=== PATIENT | male | born 1940 | race Caucasian/White ===

== ENCOUNTER 2019-03-07 16:51 | Inpatient (IN) ==
[2019-03-07] MEDS ORDERED: DEPO-MEDROL IM ONE (17:06)
[2019-03-07 17:55] LABS: BASO# 0.01 X1000 (0.0-0.2); BASO% 0.1 % (0.0-0.8); EOS# 0.01 X1000 (0.0-0.7); EOS% 0.1 % (0.0-10.0); HEMATOCRIT 43.4 % (42.0-52.0); IMM GRAN# 0.02 X1000 (0.0-0.04); IMM GRAN% 0.2 % (0.0-0.5); LYMPH# 0.35 X1000 (1.2-3.4); LYMPH% 3.8 % (20.5-51.1); MCH 32.5 PG (27-31); MCHC 32.3 g/dL (33-37); MCV 100.7 FL (81-99); MONO# 0.61 X1000 (0.11-0.59); MONO% 6.7 % (1.7-9.3); MPV 9.6 FL (7.4-10.4); NEUT# 8.16 X1000 (1.4-6.5); NEUT% 89.1 % (42.2-75.2); PLT 238 X1000 (130-400); RBC 4.31 XMIL (4.7-6.1); RDW 14.8 % (11.5-14.5); WBC 9.16 X1000 (4.8-10.8)
[2019-03-07 17:58] LABS: INR 1.2; PROTIME 15.3 Seconds (11.0-16.0)
[2019-03-07 17:59] LABS: URINE SOURCE CLEAN CATCH
[2019-03-07 17:59] LABS: PTT 30.3 Seconds (22.3-41.8)
[2019-03-07 18:08] LABS: BILIRUBIN URINE NEGATIVE (NEGATIVE); BLOOD URINE NEGATIVE (NEGATIVE); COLOR YELLOW; GLUCOSE URINE NEGATIVE (NEGATIVE); KETONE URINE NEGATIVE (NEGATIVE); LEUKOCYTES URINE NEGATIVE (NEGATIVE); NITRITE URINE NEGATIVE (NEGATIVE); PROTEIN URINE TRACE mg/dL (NEGATIVE); SP GRAVITY URINE 1.019; TURBIDITY URINE CLEAR (CLEAR); UROBILINOGEN URINE NORMAL (NORMAL)
[2019-03-07 18:09] LABS: UR EPITHELIAL CELLS <10 /HPF (<10); URINE BACTERIA NEGATIVE /HPF; URINE RBC <10 /HPF (<10); URINE WBC <10 /HPF (<10)
[2019-03-07 18:35] LABS: ALB/GLOB RATIO 1.3; ALBUMIN 4.1 g/dL (3.5-5.0); CALCIUM 9.1 mg/dL (8.8-10.2); CREATININE 1.2 mg/dL (0.7-1.2); POTASSIUM 4.5 mmol/L (3.5-5.1); TOTAL BILIRUBIN 0.75 mg/dL (0.20-1.00); TOTAL PROTEIN 7.3 g/dL (6.3-8.3)
[2019-03-07] MEDS ORDERED: TYLENOL PO ONE (18:35)
--- NOTE | 2019-03-07 18:49 | Diag Imaging Result Doc PS360 ---
EXAM: CHEST-1 VIEW INDICATION: sepsis protocol TECHNIQUE: One view COMPARISON: 02/05/2018 FINDINGS: Inspiration is suboptimal. There is stable elevation of the right hemidiaphragm. No well-defined airspace consolidation is identified by plain radiograph. There is no discrete pleural fluid collection or pneumothorax. The cardiac silhouette is mildly prominent. Central vasculature is unremarkable. IMPRESSION: Low lung volumes and mildly prominent heart. No definite acute pathology by plain radiograph. Electronically signed by Giles Trejo 03/07/2019 6:47 PM
[2019-03-07] MEDS ORDERED: LEVAQUIN PO ONE (19:01)
[2019-03-07] MEDS ORDERED: TAMIFLU PO ONE (19:01)
[2019-03-07] MEDS ORDERED: ZOFRAN PO PRN (19:25)
[2019-03-07] MEDS ORDERED: NS 1,000 ML IV ONE (19:25)
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
[2019-03-07] MEDS ORDERED: ELIQUIS PO SCH (22:32)
[2019-03-07] MEDS ORDERED: TYLENOL PO PRN ×2 (22:32→23:00)
[2019-03-07] MEDS ORDERED: TAMIFLU PO SCH (22:32)
[2019-03-07] MEDS ORDERED: MOTRIN PO PRN (22:32)
[2019-03-08] MEDS: XALATAN 0.005% OPH SOLN BOTH EYES SCH ×2 (00:42→22:02)
[2019-03-08] MEDS: KEPPRA PO SCH ×3 (00:42→22:02)
[2019-03-08] MEDS: PREDNISONE PO SCH ×2 (00:43→08:27)
[2019-03-08] MEDS: UROXATRAL PO SCH ×2 (01:22→22:03)
[2019-03-08] MEDS: DUONEB (A & A) INH SCH ×3 (03:44→19:44)
--- NOTE | 2019-03-08 07:00 | EKG Report ---
Test Performed on : 03/07/2019 10:11:23 PM Test Reason : ED. NO EKG ORDER FOR MUSE Blood Pressure : / mmHG Vent. Rate : 082 BPM Atrial Rate : 082 BPM P-R Int : 148 ms QRS Dur : 100 ms QT Int : 394 ms P-R-T Axes : 057 019 021 degrees QTc Int : 460 ms Normal sinus rhythm. Inferior infarct , age undetermined Cannot rule out Anterior infarct (cited on or before 31-OCT-2017) Abnormal ECG When compared with ECG of 01-NOV-2017 06:46, Vent. rate has increased BY 27 BPM Inferior infarct is now present Nonspecific T wave abnormality now evident in Inferior leads Unconfirmed Result
[2019-03-08] MEDS ORDERED: BROVANA NEB ONE (07:59)
[2019-03-08] MEDS: ELIQUIS PO SCH ×2 (08:26→22:03)
[2019-03-08] MEDS: ASPIRIN PO SCH (08:27)
[2019-03-08] MEDS: TAMIFLU PO SCH ×2 (08:27→22:03)
[2019-03-08] MEDS: FOLIC ACID PO SCH (08:27)
--- NOTE | 2019-03-08 10:29 | Diag Imaging Result Doc PS360 ---
EXAM: CT ANGIOGRM PULMONARY ARTERIES 03/08/2019 HISTORY: hypoxia, dyspnea, recent DVT, clear CXR. TECHNIQUE: This exam was performed using automated exposure control, adjustment of mA or kV according to patient size, and/or use of iterative reconstruction technique. COMMENT: The current examination is compared with the previous study of 02/22/2019. 3-D MIPS were performed. There is some motion artifact. There is no evidence of filling defects in the pulmonary arteries. The aorta is normal in caliber and there is no evidence of dissection. There are no abnormal fluid collections. No significant adenopathy is present. There are some pleural and parenchymal fibrotic changes in the right apex which have not changed since the previous study. There is ill-defined opacity in both lower lobes which was not previously present. There is pleural-based dense consolidation in the posterior costophrenic sulcus of the left lower lobe which was not present previously. IMPRESSION: Bilateral lower lobe pneumonia, particularly in the left lower lobe plus minus pulmonary edema. Electronically signed by Brandan Fournier 03/08/2019 10:26 AM
[2019-03-08] MEDS: BROVANA NEB INH SCH ×2 (10:38→19:44)
[2019-03-08 10:40] LABS: HEMATOCRIT 37.3 % (42.0-52.0); HEMOGLOBIN 11.8 g/dL (14.0-18.0); MCH 32.3 PG (27-31); MCHC 31.6 g/dL (33-37); MCV 102.2 FL (81-99); MPV 8.9 FL (7.4-10.4); RBC 3.65 XMIL (4.7-6.1); RDW 14.7 % (11.5-14.5); WBC 10.25 X1000 (4.8-10.8)
[2019-03-08 11:04] LABS: CALCIUM 8.4 mg/dL (8.8-10.2); CREATININE 1.4 mg/dL (0.7-1.2); POTASSIUM 4.4 mmol/L (3.5-5.1)
--- NOTE | 2019-03-08 18:26 | PROGRESS NOTE ---
DATE: 03/08/2019 INTERVAL HISTORY: The patient still with cough and dyspnea on exertion but slightly improved. Continues to endorse mild global weakness. REVIEW OF SYSTEMS: Twelve-point review of systems negative except as per interval history. LABORATORY DATA: WBC 10.25, hemoglobin 11.8, hematocrit 37.3, platelets 203,000. Basic metabolic panel significant for BUN 17, creatinine 1.4. Urinalysis unremarkable. IMAGING: CTA chest with bilateral lower lobe pneumonia, particularly on the left; possible minimal pulmonary edema, but no pulmonary embolus. OBJECTIVE: Vital signs: T-max 102.9 degrees, pulse 66, respirations 17, blood pressure 125/67, O2 saturation 100% on 3 L by nasal cannula. Generally in no acute distress. Chronically ill- appearing.HEENT: Normocephalic, atraumatic. Moist mucous membranes. No cervical adenopathy. Cardiovascular: Regular rate and rhythm. No murmurs noted. Pulmonary: Bibasilar crackles, otherwise largely clear. Abdomen soft, nontender, and nondistended, although ventral hernia is noted. Bowel sounds positive. Extremities: Peripheral pulses intact. Trace edema, stable. No clubbing or cyanosis. Neurologic: Stable left-sided weakness in upper and lower extremities. Right-sided strength is pretty good, although his clean rice grader and reel tender is somewhat limited by what appeared to be chronic rheumatoid arthritis changes. No new focal deficits identified. Psychiatric: Normal mood and affect. Awake, alert, cooperative. ASSESSMENT AND PLAN: 1. Pneumonia and sepsis. The patient presented with dyspnea, fever, tachycardia. Initial chest x-ray did not show anything. The patient did have a recent deep venous thrombosis, so there was concern for pulmonary embolism, but CTA showed pneumonia rather than clot. Patient on antibiotics with Levaquin for community-acquired pneumonia, and has had some modest improvement on that so we will continue that for now. Low threshold to broaden antibiotics if his clinical picture worsens. 2. Chronic kidney disease 3. Creatinine approximately stable. Monitor. 3. Recent deep venous thrombosis. Continue home Eliquis. 4. Small abdominal aortic aneurysm, 3 cm on last check known. 5. Benign prostatic hypertrophy. Continue home alfuzosin. 6. Rheumatoid arthritis. Patient on methotrexate and prednisone at home. Stress-dosing his steroid, given acute illness. 7. History of stroke with residual left-sided weakness and mild dysarthria, stable, noted. 8. History of seizure disorder. Continue home Nickolas.
[2019-03-08] MEDS ORDERED: LEVAQUIN 500 MG/D5W 500 MG/100 ML IVPB IV SCH (19:45)
[2019-03-08] MEDS: LEVAQUIN 750 MG/D5W 750 MG/150 ML IVPB IV SCH (22:04)
[2019-03-09] MEDS: DUONEB (A & A) INH SCH ×5 (03:51→22:20)
--- NOTE | 2019-03-09 05:38 | VASCULAR LAB ---
PROCEDURE NAME: Arterial U/S Unilateral Leg - 03/08/2019 HEDIS MANAGER: Gage. REQUESTING PHYSICIAN: Dr. Yan. INDICATIONS: Recent DVT with diminished pulses. FINDINGS: Arterial system was visualized and duplex images and velocities were obtained left lower extremity. There is flow noted to the level of the calf. The anterior tibial and posterior tibial vessels do have multi waveform flows. However, the peroneal artery is not clearly visualized. There is no evidence of significant stenosis on this study. If clinical concern remains high, you could consider segmental Doppler exam and/or CT angiography. cc: De Souza MD
[2019-03-09] MEDS ORDERED: UROXATRAL PO ONE (10:39)
[2019-03-09] MEDS ORDERED: BROVANA NEB ONE ×2 (10:42→19:33)
[2019-03-09] MEDS: KEPPRA PO SCH ×2 (10:51→21:43)
[2019-03-09] MEDS: ELIQUIS PO SCH ×2 (10:51→21:43)
[2019-03-09] MEDS: PREDNISONE PO SCH (10:52)
[2019-03-09] MEDS: FOLIC ACID PO SCH (10:53)
[2019-03-09] MEDS: TAMIFLU PO SCH ×2 (10:53→21:43)
[2019-03-09] MEDS: BROVANA NEB INH SCH (11:49)
[2019-03-09 12:16] LABS: BASO# 0.01 X1000 (0.0-0.2); BASO% 0.2 % (0.0-0.8); EOS# 0.12 X1000 (0.0-0.7); EOS% 2.1 % (0.0-10.0); HEMATOCRIT 39.7 % (42.0-52.0); HEMOGLOBIN 12.4 g/dL (14.0-18.0); LYMPH% 10.3 % (20.5-51.1); MCH 31.9 PG (27-31); MCHC 31.2 g/dL (33-37); MCV 102.1 FL (81-99); MONO# 0.38 X1000 (0.11-0.59); MONO% 6.5 % (1.7-9.3); MPV 9.5 FL (7.4-10.4); NEUT% 80.9 % (42.2-75.2); PLT 216 X1000 (130-400); RBC 3.89 XMIL (4.7-6.1); RDW 14.6 % (11.5-14.5); WBC 5.81 X1000 (4.8-10.8)
[2019-03-09 12:26] LABS: CALCIUM 8.7 mg/dL (8.8-10.2); CREATININE 1.4 mg/dL (0.7-1.2); POTASSIUM 4.6 mmol/L (3.5-5.1)
--- NOTE | 2019-03-09 14:38 | PROGRESS NOTE ---
DATE: 03/09/2019 INTERVAL HISTORY: No acute events overnight. SUBJECTIVE: Mr. Kearney is feeling better than when he presented. His at bedside has several questions regarding methotrexate, prednisone, prostate medication, Eliquis and I answered all of those questions. Mr. Kearney denies any chest pain or shortness of breath at rest. He states his cough is dry however occasionally he is expectorating though he tends to swallow his sputum. I informed him about collecting sputum. He denies nausea, vomiting, abdominal pain. He denies any burning micturition. VITALS: Temperature of 98.3 degrees, pulse 67, respiratory 16, blood pressure 110/70 saturating 100% on nasal cannula. PHYSICAL EXAMINATION: General: Not in acute distress, oral cavity is moist. Air entry bilateral equal. No wheeze or rhonchi. Mild crackles infrascapular region on the left. S1, S2 normal. No murmur, rub, or gallop. Abdomen: Obese, soft, nontender. No lower extremity edema. He is alert. He does have left-sided facial droop. Pupils are bilaterally equal reacting to light. He does have power of about 3 to 4 on 5 on left shoulder, left elbow, left knee and left hip joint. Power is 5 on 5 on right upper and lower extremities. LABS: His CBC, BMP are currently pending. Microbiology no new data. ASSESSMENT AND PLAN: 1. Sepsis due to left lower lobe pneumonia and suspected influenza, though his influenza swab was negative considering his immunocompromised status, long-term steroid use it was decided to treat him. I will start him on droplet precaution, continue oseltamivir, intravenous levofloxacin, follow up sputum culture and urine antigen results. I informed this plan with his and she is in agreement. 2. Acute hypoxic respiratory failure. This could be in the setting of left lower lobe pneumonia. I turned his oxygen down to 1 L and he has been saturating 98%. I will keep him on CPAP while asleep for his history of obstructive sleep apnea and continue him on inhaled bronchodilator. 3. History of right lower extremity deep venous thrombosis. Continue apixaban the dose of which I have decreased to 5 mg b.i.d. which is his home dose currently, his ultrasound did not detect any blood clot. Currently he has good pulsations bilateral dorsalis pedis and posterior tibial. 4. Others, continue levetiracetam for history of seizure, home calcium and folic acid, MiraLAX for constipation. His methotrexate has been held considering current pneumonia. Patient's refused to let him take more than 5 mg of prednisone considering he previously had reported psychosis due to prednisone. I explained to her about the fact that he was started on higher dose of prednisone considering his acute illness and long-term steroid use, however she was concerned about delirium. Currently he appears to be out of sepsis so I decided to decrease his steroid dose to prednisone 5 mg daily starting tomorrow. DISPOSITION: Monitor patient inside the hospital. Physical therapy would evaluate him. I am anticipating discharge in next 24 to 48 hours depending on his blood work and clinical symptoms. cc: Emanuel Hough MD
[2019-03-09] MEDS: MIRALAX PO SCH (20:46)
[2019-03-09] MEDS: ASPIRIN PO SCH (20:46)
[2019-03-09] MEDS ORDERED: UROXATRAL PO SCH ×2 (21:00)
[2019-03-09] MEDS: XALATAN 0.005% OPH SOLN BOTH EYES SCH (21:43)
[2019-03-09] MEDS: LEVAQUIN 750 MG/D5W 750 MG/150 ML IVPB IV SCH (21:44)
[2019-03-10] MEDS: DUONEB (A & A) INH SCH ×2 (04:00→11:00)
[2019-03-10] MEDS ORDERED: PREDNISONE PO SCH ×2 (09:00)
[2019-03-10] MEDS: MIRALAX PO SCH (10:17)
[2019-03-10] MEDS: KEPPRA PO SCH (10:18)
[2019-03-10] MEDS: TAMIFLU PO SCH (10:18)
[2019-03-10] MEDS: FOLIC ACID PO SCH (10:19)
[2019-03-10] MEDS: ELIQUIS PO SCH (10:19)
[2019-03-10 14:11] VITALS: BP 120/86
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
== END 2019-03-10 14:50 | disposition home health service (06) | DRG 871 ==
LOC: SUPCPDRO → ED 16:51 → SUATTDRO 21:51 → 4N 21:51
PROVIDERS: ATTEND Internal Medicine